=== PATIENT | female | born 1965 | race African-American/Black ===

== ENCOUNTER 2016-04-19 14:33 | Emergency (ER) | payer MEDICAID ==
[~2016-04-19] VITALS: Ht 162.6 cm; Wt 61.2 kg
[~2016-04-19 14:33] MED LIST: ANTIBIOTICS; CETI-233 PO
[2016-04-19 15:05] LABS: DIFF TOTAL % 100 %; EOSINOPHILS # (AUTO) 0.1 /CMM (0.0-0.7); EOSINOPHILS % (AUTO) 1.5 % (0.0-6.0); HEMATOCRIT 41 % (33-45); HEMOGLOBIN 13.7 g/dL (11.5-14.8); LYMPHOCYTES # (AUTO) 1.3 /CMM (0.8-4.8); LYMPHOCYTES % (AUTO) 31.8 % (20.0-44.0); MEAN CORPUSCULAR HEMOGLOBIN 32 PG (26.0-33.0); MEAN CORPUSCULAR HGB CONC 34 g/dl (31.0-36.0); MEAN CORPUSCULAR VOLUME 93 fL (82-100); MONOCYTES # (AUTO) 0.4 /CMM (0.1-1.30); MONOCYTES % (AUTO) 9.1 % (2.0-12.0); NEUTROPHILS # (AUTO) 2.3 /CMM (1.8-8.9); NEUTROPHILS % (AUTO) 56.6 % (43.0-81.0); PLATELET COUNT (AUTO) 286 /CMM (150-450); RED BLOOD CELL COUNT(AUTO) 4.36 MIL/uL (4.0-5.2); WHITE BLOOD COUNT (AUTO) 4.1 K/uL (4.3-11.0)
[2016-04-19 15:09] LABS: PREGNANCY TEST URINE QUAL NEGATIVE (NEGATIVE)
[2016-04-19 15:11] LABS: ADD UA MICROSCOPIC YES; KETONES,URINE Negative (NEGATIVE); LEUKOCYTE ESTERASE ,URINE Negative (NEGATIVE)
[2016-04-19 15:30] LABS: ADD URINE CULTURE NO; WBC,URINE 0-2 /HPF (0-3)
[2016-04-19 15:32] LABS: BILIRUBIN,DIRECT 0.1 mg/dL (0.0-0.2); BILIRUBIN,TOTAL 0.3 mg/dL (0.2-1.0); CALCIUM, SERUM 8.9 mg/dL (8.5-10.1); CREATININE 0.7 mg/dL (0.6-1.3); INDIRECT BILIRUBIN 0.2 mg/dL (0.0-1.1); POTASSIUM 3.9 mmol/L (3.5-5.1); TOTAL PROTEIN, SERUM 8.2 g/dL (6.4-8.2)
[2016-04-19] MEDS ORDERED: IV NS 0.9% 250 ML IV ONE (15:41)
[2016-04-19] MEDS ORDERED: CT SWABBABLE VALVE TRANS SET 1 EA INFUS.SET MC ONE (15:41)
[2016-04-19] MEDS ORDERED: IOHEXOL-300 100 ML VIAL IV ONE (15:41)
[2016-04-19 17:37] VITALS: BP 126/78
== END 2016-04-19 17:48 | disposition home or self-care (01) ==
LOC: ER 14:38
DX: O26.891 Other specified pregnancy related conditions, first trimester (principal); R10.2 Pelvic and perineal pain; Z3A.01 Less than 8 weeks gestation of pregnancy; K76.89 Other specified diseases of liver; N28.1 Cyst of kidney, acquired; N81.4 Uterovaginal prolapse, unspecified; Z90.710 Acquired absence of both cervix and uterus
CPT/HCPCS: 36415; 74160; 80048; 80076; 81001; 83690; 84703; 85025; 87086; 99285; A4606; J7050; Q9967; Z7610; 81000-TC